=== PATIENT | female | born 1955 | race Caucasian/White ===

== ENCOUNTER → 2018-01-26 08:06 | Outpatient (CLI) | payer MEDICARE, SELFPAY ==
--- NOTE | 2018-01-26 08:14 | VDLE_ITS ---
Reason For Study: pain Procedure LEFT Exam performed in department. GSV is normal. The exam was diagnostic. CFV is compressible, spontaneous, phasic, A preliminary report was called and/or faxed competent, and demonstrates normal to [facility]. augmentation. Pt is to go to Primary care for treatment. FV is compressible, spontaneous, phasic, competent and demonstrates normal augmentation. Pop V is noncompressible with decreased flow. T/P Trunk, PTV, Peroneal V, and Soleus V are dilated and noncompressible. DVT in Pop V appears to be loosley attached. <> Interpretation Summary Acute deep vein thrombosis is noted in the left popliteal vein. Acute deep vein thrombosis is noted in the left tibio-peroneal trunk. Acute deep vein thrombosis is noted in the left posterior tibial vein. Acute deep vein thrombosis is noted in the left peroneal vein. Acute deep vein thrombosis is noted in the left soleus vein. The left common femoral vein and femoral vein are patent, compressible, and competent. The left greater saphenous vein appears patent and compressible segmentally. Ordering Physician: Millie Langford Referring Physician: Ac Heart Performed By: Geraldo Moran, RVT
== END ==
PROVIDERS: Family Provider Family Medicine; PCP Family Medicine; Referring Provider Podiatrist Foot & Ankle Surgery; Visit Provider Podiatrist Foot & Ankle Surgery
DX: M79.662 Pain in left lower leg (principal)
CPT/HCPCS: 93971

== ENCOUNTER → 2018-04-25 10:41 | Outpatient (CLI) | payer MEDICARE, SELFPAY ==
--- NOTE | 2018-04-25 10:46 | VDLE_ITS ---
Reason For Study: LEG PAIN RIGHT LEFT CFV is compressible, spontaneous, phasic, GSV is normal. competent and demonstrates normal CFV is compressible, spontaneous, phasic, augmentation. competent, and demonstrates normal Procedure augmentation. Exam performed in department. FV is compressible, spontaneous, phasic, Slow sluggish flow noted throughout. competent and demonstrates normal A preliminary report was called and/or faxed augmentation. to Dr. Heart. POP V is compressible, spontaneous, phasic, competent and demonstrates normal augmentation. T/P Trunk is compressible. PERV and PTV are dilated and non- compressible. No change in calf veins from previous exam. POP V and T/P trunk are now compressible. Interpretation Summary Acute deep vein thrombosis is noted in the left peroneal vein. Acute deep vein thrombosis is noted in the left posterior tibial vein. The remainder of the left lower extremity deep venous system is patent and compressible. Valvular competence appears intact within the proximal deep venous system on the left . The left greater saphenous vein appears patent and compressible segmentally. There has been mild improvement since a prior study on 01/26/2018. Ordering Physician: Ac Heart Referring Physician: Ac Heart Performed By: Lizzie Estrella RVT
== END ==
PROVIDERS: Family Provider Family Medicine; PCP Family Medicine; Referring Provider Family Medicine; Visit Provider Family Medicine
DX: M79.605 Pain in left leg (principal); R60.9 Edema, unspecified; Z86.718 Personal history of other venous thrombosis and embolism
CPT/HCPCS: 93971